=== PATIENT | male | born 1985 | race Caucasian/White ===

== ENCOUNTER 2023-12-07 17:18 | Emergency (ER) | payer OTHER, SELFPAY ==
[2023-12-07] VITALS (13 sets, daily range): BP systolic 128–149; BP diastolic 81–90; PULSE 102–125; RESP 18–20; TEMP 37.7–38.1; O2SAT 95–99
--- NOTE | 2023-12-07 17:48 | CRLHL7_ITS ---
For Patients: As a result of the Century Cures Act, medical imaging exams and procedure reports are released immediately into your electronic medical record. You may view this report before your referring provider. If you have questions, please contact your health care provider. Indication Shortness of breath Technique Two view(s) of the chest Comparison None Findings The cardiomediastinal silhouette and pulmonary vasculature are unremarkable. There is no focal airspace consolidation, pleural effusion, or pneumothorax. No displaced fractures. Impression No acute cardiopulmonary process. Dictated by Jason Rojo MD @ 12/07/2023 7:13:31 PM (Electronically Signed)
--- NOTE | 2023-12-07 17:58 | ED_ITS ---
HPI - General Adult General Chief complaint: Chest Pain Stated complaint: Chest pain, racing pulse Time Seen by Provider: 12/07/23 17:47 Source: patient Mode of arrival: ambulatory Limitations: no limitations History of Present Illness HPI narrative: 38-year-old male presenting today not feeling well. He states that for the last couple weeks has been more fatigued than usual. Today he noticed that he was really short of breath with minor physical activity, felt lightheaded and then noticed that his heart was racing. He states he has had normal appetite, no diarrhea or urinary symptoms such as frequency, urgency or dysuria. He denies, cough, abdominal pain or extremity discomfort. Every now and again he gets chest pain. This is not associated with activity. He denies any skin rashes or bug bites. He denies any recent travel or recent surgery. He denies nausea or vomiting. Generally healthy male. History of seasonal allergies and GERD. Tonsillectomy many years ago. Drinks socially, rarely. No tobacco use. Related Data Home Medications ?Medication ?Instructions ?Recorded ?Confirmed cetirizine 10 mg tablet (Zyrtec) 10 mg PO QDAY PRN 03/27/22 12/07/23 cholecalciferol (vitamin D3) 25 25 mcg PO QDAY 03/27/22 12/07/23 mcg (1,000 unit) capsule (Vitamin D3) multivitamin 1 tab PO QDAY 03/27/22 12/07/23 omega 7-akx-dje-fish oil 100 cap PO 03/27/22 05/30/23 mg-160 mg-1,000 mg capsule (Fish Oil) omeprazole 20 mg capsule,delayed 20 mg PO QDAY 03/27/22 05/30/23 release esomeprazole magnesium 20 mg 20 mg PO DAILY 12/07/23 12/07/23 capsule,delayed release (Nexium) Previous Rx's ?Medication ?Instructions ?Recorded nirmatrelvir 300 mg (150 mg See Rx Instructions PO .COMPLEX 12/07/23 x2)-ritonavir 100 mg tablet,dose #30 ea pack (Paxlovid) Allergies Allergy/AdvReac Type Severity Reaction Status Date / Time cinnamon Allergy Verified 12/07/23 17:36 Review of Systems Status of ROS: Reports: 10 or more systems reviewed and unremarkable except as noted in History and below PFSH PFS Family History Maternal Grandfather Stroke Coronary artery disease Mother Diverticulitis Social History What is your current living situation?: I presently have a place to live Problems where you live: no known problems In the past 12 months, utilities in danger of being shut off: no In past 12 months, lack of transportation kept you from medical appts, meetings, work, or getting things needed for daily living: no In the past 12 mos, have been you worried that your food would run out before you had money to buy more?: never true In the past 12 mos, the food you bought just didn't last and you didn't have money to buy more?: never true Smoking Status: Former smoker What tobacco products do you use: cigarettes Smoking quit date/years: >15 years ago How often do you have a drink containing alcohol: monthly or less AUDIT-C Alcohol total score: 1 Non-prescribed substance use: denies use How often does anyone, including family, friends and others, physically hurt you : never How often does anyone, including family, friends and others, insult or talk down to you: never How often does anyone, including family, friends and others, threaten you with harm: never How often does anyone, including family, friends and others, scream or curse at you: never Little interest or pleasure in doing things: not at all Feeling down, depressed, or hopeless: several days Exam Narrative: Exam Narrative: Well-nourished well-developed patient in no acute distress. Alert and oriented. Answers questions appropriately. Mood and affect are appropriate. Thoughts are goal oriented and rational. No tangential or magical thinking noted. Patient speaks in full sentences without needing to catch his breath. HEENT: Normocephalic atraumatic. Pupils are equally round reactive to light. Extraocular muscles are intact. Conjunctivae are moist without any icterus noted. Moist mucous membranes. Posterior pharynx is normal. Neck is soft without any lymphadenopathy or thyromegaly. No masses are appreciated. Cardiovascular: Heart is regular rhythm, tachycardic. S1 and S2 are present without any murmurs. Lungs: Clear to auscultation bilaterally no wheezes rhonchi or rales are appreciated. Patient takes deep breaths without any discomfort. Abdomen: Soft and nontender nondistended with normal bowel sounds. No guarding or rebound. No masses or organomegaly appreciated. Extremities: Bilateral lower extremities are without edema. Normal DP and PT pulses. Skin: Well perfused without any obvious rashes. Const: Vital Signs, click to edit/add: Vital Signs - 24 hr 12/07/23 17:29 12/07/23 18:04 Temperature 100.5 F H Pulse Rate [Pulse Oximeter] 125 H Respiratory Rate 20 Blood Pressure [Ri ght Upper Arm] 141/90 H Pulse Oximetry 98 97 Oxygen Delivery Me thod Room Air Course Course ED Course: Patient is placed on school lunch monitor. IV is established and patient is given a L of normal saline, oral ibuprofen. EKG, read by me, shows sinus tachycardia with a pulse of 114. Labs were drawn: Patient is COVID positive. Chest x-ray, read by me, does not show any acute pathology. After fluids and ibuprofen patient's pulse did come down to 103, blood pressure remained stable. Temperature came down from 100.5 to 100. Vital Signs Vital signs: Initial Vital Signs Temperature 100.5 F H 12/07/23 17:29 Temperature Source Tympanic 12/07/23 17:29 Pulse Rate 125 H 12/07/23 17:29 Pulse Rhythm Regular 12/07/23 17:29 Respiratory Rate 20 12/07/23 17:29 Blood Pressure 141/90 H 12/07/23 17:29 Blood Pressure Mean 107 H 12/07/23 17:29 Blood Pressure Position Sitting 12/07/23 17:29 Pulse Oximetry 98 12/07/23 17:29 Oxygen Delivery Method Room Air 12/07/23 17:29 Vital Signs Temperature 100.5 F H 12/07/23 17:29 Pulse Rate 125 H 12/07/23 17:29 Respiratory Rate 20 12/07/23 17:29 Blood Pressure 141/90 H 12/07/23 17:29 Pulse Oximetry 98 12/07/23 17:29 Oxygen Delivery Method Room Air 12/07/23 17:29 Temperature 100.5 F H 12/07/23 17:29 Pulse Rate 125 H 12/07/23 17:29 Respiratory Rate 20 12/07/23 17:29 Blood Pressure 141/90 H 06/23/24 17:29 Pulse Oximetry 97 12/07/23 18:04 Oxygen Delivery Method Room Air 12/07/23 17:29 Medications Administered Medications: Discontinued Medications Generic Name Dose Route Start Last Admin Trade Name Benita PRN Reason Stop Dose Admin Sodium Chloride 1,000 mls @ 1,000 mls/hr 12/07/23 18:00 12/07/23 18:41 0.9 % Sodium Chloride 1000 Ml IV 12/07/23 18:59 Infused .Q1H CHE Infusion Ibuprofen 800 mg 12/07/23 17:48 12/07/23 18:02 Ibuprofen 400 Mg Tablet PO 12/07/23 17:49 800 mg ONCE ONE Administration Medical Decision Making MDM Narrative Medical decision making narrative: 38-year-old male with COVID-19, patient otherwise healthy. We discussed risks and benefits of Paxlovid. We are within the treatment window and so patient wishes to proceed with that. Lab Data Lab results reviewed: Yes I reviewed the patient's lab results Labs: Lab Results 12/07/23 12/07/23 Range/Units 18:00 18:50 WBC 11.57 H (4.50-11.00) K/uL RBC 5.31 (4.30-5.90) m/uL Hgb 14.8 (13.5-17.5) gm/dL Hct 43.7 (37.0-53.0) % MCV 82 (80-100) fL MCH 28 (26-34) pg MCHC 34 (32-36) gm/dL RDW Coeff of Fabi 12.3 (11.5-15.5) % Plt Count 280 (140-440) K/uL Neut % (Auto) 79.2 H (42.0-72.0) % Lymph % (Auto) 11.0 L (20-44) % [place] % (Auto) 9.2 (0.0-11.0) % Eos % (Auto) 0.4 (0.0-7.0) % Baso % (Auto) 0.1 (0.0-3.0) % Neut # (Auto) 9.20 H (1.7-7.0) K/uL Lymph # (Auto) 1.30 (0.90-2.90) K/uL [place] # (Auto) 1.10 H (0.00-0.90) K/UL Eos # (Auto) 0.00 (0.00-0.50) K/uL Baso # (Auto) 0.00 (0.00-0.30) K/uL Abs Immat Gran (auto) 0.00 (0.00-0.30) K/uL Imm/Tot Granulo (auto) 0.1 % Sodium 138 (135-149) mmol/L Potassium 4.0 (3.6-5.1) mmol/L Chloride 104 (96-114) mmol/L Carbon Dioxide 22 (20-32) mmol/L Anion Gap 12 (7-15) mEq/L BUN 18 (5-24) mg/dL Creatinine 1.2 (0.5-1.5) mg/dL Estimated Creat Clear 88.02 Estimated GFR 79 ml/min Glucose 97 (60-115) mg/dL Lactate 1.5 (0.5-1.9) mmol/L Calcium 9.5 (8.4-10.6) mg/dL Total Bilirubin 0.4 (0.1-1.5) mg/dL Direct Bilirubin 0.3 (0.0-0.5) mg/dL AST 35 (12-35) U/L ALT 44 (4-50) U/L Alkaline Phosphatase 61 (40-150) U/L Troponin I < 0.01 L (0.01-0.04) ng/mL C-Reactive Protein 1.2 H (0.5-1.0) mg/dL Total Protein 7.9 (6.0-8.3) g/dL Albumin 5.1 H (3.3-5.0) g/dL Urine Color Yellow (Yellow) Urine Appearance Clear (Clear) Urine pH 7.5 (5.0-8.5) Ur Specific [place] 1.025 (1.000-1.030) Urine Protein Negative (Negative) Urine Glucose (UA) Negative (Negative) Urine Ketones Negative (Negative) Urine Blood Trace-intact A (Negative) Urine Nitrite Negative (Negative) Urine Bilirubin Negative (Negative) Urine Urobilinogen 0.2 (0.2-1.0) Ur Leukocyte Esterase Negative (Negative) Urine RBC 0-2 (0-2) Urine WBC 0-2 (0-5) Ur Squamous Epith Cells None (None-Few) Urine Bacteria None (None) SARS-CoV-2 (PCR) POSITIVE SARS-CoV-2 A (Negative) Influenza Type A (PCR) Negative PCR FLU A (Negative) Influenza Type B (PCR) Negative PCR FLU B (Negative) RSV (PCR) Negative PCR RSV (Negative) POC Troponin I 0.00 L (0.01-0.04) ng/ml Imaging Data Chest x-ray: Attestation: I have reviewed the pertinent imaging results. Radiologist's impression: Shortness of breath Technique Two view(s) of the chest Comparison None Findings The cardiomediastinal silhouette and pulmonary vasculature are unremarkable. There is no focal airspace consolidation, pleural effusion, or pneumothorax. No displaced fractures. Impression No acute cardiopulmonary process. ECG Data Attestation: I personally reviewed and interpreted this ECG as follows: Discharge Plan Discharge Clinical Impression: COVID-19 Patient Disposition: Home, Self-Care Condition: Stable Additional Instructions: Take Paxlovid as prescribed. Okay to take Tylenol or ibuprofen for aches and fever. Make sure you increase your daily fluid intake. Return to the ER if you develop worsening chest pain or shortness of breath. Prescriptions: New Paxlovid 300 mg (150 mg x 2)-100 mg tablets,dose pack See Rx Instructions .ROUTE .COMPLEX Qty: 30 0RF Rx Instructions: take TWO 150 mg tablets of nirmatrelvir with ONE 100 mg tablet of ritonavir twice daily for 5 days No Action omeprazole 20 mg capsule,delayed release(DR/EC) 20 mg PO QDAY cetirizine [Zyrtec] 10 mg tablet 10 mg PO QDAY PRN multivitamin Tablet 1 tab PO QDAY Fish Oil 100-160-1,000 mg capsule PO cholecalciferol (vitamin D3) [Vitamin D3] 25 mcg (1,000 unit) capsule 25 mcg PO QDAY esomeprazole magnesium [Nexium] 20 mg capsule,delayed release(DR/EC) 20 mg PO DAILY Follow Up/Referrals: Dread Varner MD [Primary Care Provider] - Stand Alone Forms: [facility] Info Instructions
[2023-12-07] MEDS: 0.9 % SODIUM CHLORIDE 1000 ml 1,000 ML IV (18:00)
[2023-12-07] MEDS: IBUPROFEN 400 MG TABLET 800 MG PO (18:02)
[2023-12-07 18:09] LABS: Basophils Percent Auto 0.1 % (0.0-3.0); Eosinophils Percent Auto 0.4 % (0.0-7.0); Hematocrit 43.7 % (37.0-53.0); Hemoglobin* 14.8 gm/dL (13.5-17.5); Immature Granulocytes Pct Auto 0.1 %; Lactate* 1.5 mmol/L (0.5-1.9); Mean Corpuscular HGB Conc 34 gm/dL (32-36); Mean Corpuscular Hemoglobin 28 pg (26-34); Mean Corpuscular Volume 82 fL (80-100); Monocytes Percent Auto 9.2 % (0.0-11.0); Neutrophils Percent Auto 79.2 % (42.0-72.0); Platelet Count* 280 K/uL (140-440); RDW Coefficient of Variation % 12.3 % (11.5-15.5); Red Blood Count 5.31 m/uL (4.30-5.90); White Blood Count* 11.57 K/uL (4.50-11.00)
[2023-12-07 18:11] LABS: Slide Review Reflex No
[2023-12-07 18:38] LABS: Albumin* 5.1 g/dL (3.3-5.0); Chloride* 104 mmol/L (96-114); Sodium* 138 mmol/L (135-149)
[2023-12-07 18:41] LABS: Creatinine* 1.2 mg/dL (0.5-1.5); Est. Creatinine Clearance* 88.02; Estimated Glomerular Filt Rate 79 ml/min
[2023-12-07 18:42] LABS: Alanine Aminotransferase* 44 U/L (4-50); Alkaline Phosphatase* 61 U/L (40-150); Anion Gap 12 mEq/L (7-15); Aspartate Amino Transferase* 35 U/L (12-35); Bilirubin Direct* 0.3 mg/dL (0.0-0.5); Bilirubin Total* 0.4 mg/dL (0.1-1.5); Blood Urea Nitrogen* 18 mg/dL (5-24); Calcium* 9.5 mg/dL (8.4-10.6); Carbon Dioxide* 22 mmol/L (20-32); Glucose* 97 mg/dL (60-115); Total Protein* 7.9 g/dL (6.0-8.3)
[2023-12-07 18:44] LABS: C Reactive Protein* 1.2 mg/dL (0.5-1.0)
[2023-12-07 18:49] LABS: PCR FLU A Negative PCR FLU A (Negative); PCR FLU B Negative PCR FLU B (Negative); PCR RSV Negative PCR RSV (Negative); SARS PCR* POSITIVE SARS-CoV-2 (Negative)
[2023-12-07 18:54] LABS: Troponin I* < 0.01 ng/mL (0.01-0.04)
[2023-12-07 19:00] LABS: Appearance Urine Clear (Clear); Bilirubin Urine Negative (Negative); Blood Urine Trace-intact (Negative); Color Urine Yellow (Yellow); Glucose Urine Negative (Negative); Ketones Urine Negative (Negative); Leukocyte Esterase Urine Negative (Negative); Nitrite Urine Negative (Negative); Protein Urine Negative (Negative); Specific Gravity Urine 1.025 (1.000-1.030); Urobilinogen Urine 0.2 (0.2-1.0); pH Urine 7.5 (5.0-8.5)
[2023-12-07 19:20] LABS: RBC Urine 0-2 (0-2); WBC Urine 0-2 (0-5)
[2023-12-07 20:11] LABS: D Dimer Quantitative* < 0.27 ug/ml (0.00-0.50)
== END 2023-12-07 20:17 | disposition home or self-care (01) ==
PROVIDERS: Emergency Provider Family Medicine; PCP Family Medicine
DX: U07.1 COVID-19 (principal)
CPT/HCPCS: 36415; 71046; 80048; 80076; 81001; 83605; 84484; 85025; 85379; 86140; 87086; 87631; 93005; 94761; 99284; 99285; A9270; J7030

== ENCOUNTER 2024-03-26 12:01 | Outpatient (CLI) | payer OTHER, SELFPAY | END 2024-03-26 12:02 | disposition home or self-care (01) | PROVIDERS: PCP Family Medicine; Visit Provider Family Medicine | DX: R05.3 Chronic cough (principal) | CPT/HCPCS: 80048; 86140 ==

== ENCOUNTER 2024-04-05 15:38 | Outpatient (CLI) | payer OTHER, SELFPAY ==
--- NOTE | 2024-04-05 16:00 | CRLHL7_ITS ---
For Patients: As a result of the Century Cures Act, medical imaging exams and procedure reports are released immediately into your electronic medical record. You may view this report before your referring provider. If you have questions, please contact your health care provider. INDICATION: 38 year-old male. Chronic cough for 5 months. Prior treatment with antibiotics and steroids. Cough reportedly returns when the patient is no longer on medication. TECHNIQUE: Contrast-enhanced chest CT. 75 cc nonionic Isovue-370 administered. COMPARISON: Correlation is made with a two-view chest x-ray December 07, 2023. FINDINGS: Slight fibrosis or atelectasis lingular left upper lobe of the lung. Both lungs are otherwise clear. There is no evidence for active pneumonia. No intrapulmonary nodules, masses, pleural, or pericardial effusions. The trachea and mainstem bronchi are patent and clear. There is no evidence for an active or chronic interstitial process. No bronchiectasis. No thoracic lymphadenopathy. No coronary artery calcification identified. Overall cardiac size is normal. The thyroid gland, thoracic aorta, adrenal glands, and spleen are within normal limits. Normal included skeleton. IMPRESSION: 1. No evidence for acute or chronic cardiopulmonary processes. 2. Minor linear fibrosis or atelectasis lingular left upper lobe of the lung. Please note that all CT scans at this facility use dose modulation, iterative reconstruction, and/or weight-based dosing when appropriate to reduce radiation dose to as low as reasonably achievable. Dictated by Jevean Galvez MD @ 04/07/2024 11:43:50 AM (Electronically Signed)
== END 2024-04-05 15:39 | disposition home or self-care (01) ==
LOC: CT 15:39
PROVIDERS: PCP Family Medicine; Visit Provider Family Medicine
DX: R05.3 Chronic cough (principal); J84.10 Pulmonary fibrosis, unspecified
CPT/HCPCS: 71260; Q9967